=== PATIENT | female | born 1965 | race Caucasian/White ===

== ENCOUNTER 2018-08-23 16:24 | Emergency (ER) | payer OTHER ==
--- OUTSIDE RECORDS SUMMARY | 2018-08-23 16:27 | XMS REPORT | Clinical Summary ---
:1965 Author Organization [facility] Address [address] [place] [address] Care Team Providers Name Role Phone Asked, No Pcp Primary Care Provider Unavailable Allergies No Known Allergies Medications Medication Sig Dispensed Refills Start Date End Date Status aspirin 325 MG Take 1 tablet 56 tablet 0 01/10/2018 Active tabletIndications: (325 mg total) Femoroacetabular by mouth 2 impingement of right (two) times a hip day after meals. docusate sodium Take 1 capsule 30 capsule 0 01/10/2018 Active (COLACE) 100 MG (100 mg total) capsuleIndications: by mouth 2 Femoroacetabular (two) times a impingement of right day. hip naproxen (NAPROSYN) Take 1 tablet by mouth 2 times a day with meals for 30 days 60 tablet 0 01/10/2018 Active 500 MG tabletIndications: Begin taking Naproxen the day after you finish Indocin ( Indomethacin) Femoroacetabular impingement of right hip tiZANidine (ZANAFLEX) Take 1 tablet 10 tablet 0 01/10/2018 Active 4 MG (4 mg total) tabletIndications: by mouth every Femoroacetabular 8 (eight) impingement of right hours as hip needed for muscle spasms. ondansetron ODT Take 1 tablet 10 tablet 0 01/10/2018 Active (ZOFRAN ODT) 8 MG (8 mg total) disintegrating by mouth every tabletIndications: 8 (eight) Femoroacetabular hours as impingement of right needed for hip nausea or vomiting. piroxicam (FELDENE) Take 1 capsule 30 capsule 0 02/24/2017 12/07/19 Discontinued 20 MG capsule (20 mg total) 18 by mouth daily. indomethacin SR Take 1 capsule 4 capsule 0 01/10/2018 01/15/20 (INDOCIN SR) 75 mg CR (75 mg total) 18 capsuleIndications: by mouth daily Femoroacetabular with breakfast impingement of right for 4 days. hip esomeprazole (NexIUM) Take 1 capsule 7 capsule 0 01/10/2018 01/18/20 20 MG (20 mg total) 18 capsuleIndications: by mouth daily Femoroacetabular before impingement of right breakfast for hip 7 days. 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 Tear of right acetabular labrum 06/20/2017 Gait abnormality 06/20/2017 Muscle weakness of lower extremity 06/20/2017 Congenital dysplasia of right hip 06/20/2017 Encounters Date Type Specialty Care Team Description 02/28/2018 Office Visit Orthopedic Surgery Kenyon Bean Femoroacetabular impingement of right hip (Primary Dx); MD [place] Hip instability, right; Tear of right acetabular labrum, subsequent encounter 01/24/2018 Office Visit Orthopedic Surgery Kenyon Bean Femoroacetabular impingement of right hip (Primary Dx); MD [place] Hip instability, right; Labral tear of hip, degenerative 01/11/2018 Surgery Orthopedic Surgery Kenyon Bean HIP ARTHROSCOPY, MD [place] FEMOROPLASTY, ACETABULOPLASTY, CAPSULAR REPAIR, LABRAL REFIXATION, ANTERIOR INFERIOR ILIAC SPINE SUBSPINE DECOMPRESSION 01/11/2018 Anesthesia Event Orthopedic Surgery Misty Patel, ASIAN STUDIES PROGRAM CHAIR 01/11/2018 Hospital Encounter Orthopedic Surgery Kenyon Bean MD 01/10/2018 Orders Only Orthopedic Surgery Gita Alfonsoabular GREGOR Redmond impingement of right hip (Primary Dx) 01/06/2018 Pre-Admit Testing Pre-Admission Kenyon Bean Pre-op testing ( Primary Appointment Testing MD [place] Dx) 01/04/2018 Orders Only Orthopedic Surgery Gita Alfonsoabular impingement of right hip (Primary Dx); GREGOR [place] Tear of right acetabular labrum, initial encounter 12/29/2017 Orders Only Orthopedic Surgery Alfonso, Other specific joint derangements of right hip, not elsewhere classified (Primary Dx); GREGOR Redmond Femoroacetabular impingement of right hip; Tear of right acetabular labrum, initial encounter 12/06/2017 Pre-Admit Testing Pre-Admission Kenyon Bean Pre-op testing ( Primary Appointment Testing MD [place] Dx) 12/06/2017 Office Visit Orthopedic Surgery Kenyon Bean Right hip pain ( Primary Dx); MD [place] Femoroacetabular impingement of right hip; Hip instability, right; Labral tear of hip, degenerative after 08/22/2017 Family History Medical History Relation Name Comments Hypertension Mother Relation Name Status Comments Mother Social History Tobacco Use Types Packs/Day Years Used Date Never Smoker Smokeless Tobacco: Never Used Alcohol Use Drinks/Week oz/Week Comments Yes 5 drinks per week Sex Assigned at Date Recorded Not on file Job Start Date Occupation Industry Not on file Not on file Not on file Travel History Travel Start Travel End No recent travel history available. Last Filed Vital Signs Vital Sign Reading Time Taken Blood Pressure 139/63 01/11/2018 1:21 PM CDT Pulse 86 01/11/2018 1:21 PM CDT Temperature 36.6 C (97.8 F) 02/28/2018 10:39 AM CDT Respiratory Rate 16 01/11/2018 1:21 PM CDT Oxygen Saturation 96% 01/11/2018 1:21 PM CDT Inhaled Oxygen Concentration - - Weight 86.2 kg (190 lb) 02/28/2018 10:39 AM CDT Height 175.3 cm (5' 9") 02/28/2018 10:39 AM CDT Body Mass Index 28.06 02/28/2018 10:39 AM CDT Plan of Treatment Health Maintenance Due Date Last Done Comments CERVICAL CANCER SCREENING 1987 COLON CANCER SCREENING 2016 SHINGLES VACCINES (1 of 2) 2016 BREAST CANCER SCREENING 11/29/2016 11/29/2014, 11/29/2014, 10/07/2012, Additional history exists INFLUENZA VACCINE 02/02/2018 Implants Implanted Type Area Nuclear Fuel Processing 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 Device Shelf Model / Identifier Expiration Serial / Date Lot 1.8 Q-Fix Mini Suture [place] (Blue-Cobraid) - [id number] IMPLANT Right: [employer]HEW 09/06/2020 [id number] / Implanted: Qty: 2 on 01/11/2018 by Kenyon Bean MD DEVICES Hip SPORTS MEDICINE / (ENDO) [id number] 1.8 Q-Fix Mini Suture [place] (Blue-Cobraid) - [id number] [id number] IMPLANT Right: [employer]PHEW 09/06/2020 [id number] / Implanted: Qty: 1 on 01/11/2018 by Kenyon Bean MD DEVICES Hip SPORTS MEDICINE / (ENDO) [id number] 1.8 Q-Fix Mini Suture [place] (Blue-Cobraid) - [id number] [id number] IMPLANT Right: [employer]HEW 09/06/2020 [id number] / Implanted: Qty: 1 on 01/11/2018 by Kenyon Bean MD DEVICES Hip SPORTS MEDICINE / (ENDO) [id number] [place] Juggerknot Kit Soft Disposable 1.5 Mm Juggerknot - [id number] Orthopedic Right: BIOMET SPORTS [id number] / Implanted: 01/11/2018 by Kenyon Bean MD (Quantity not on file) Trauma Hip MEDICINE / Implants [facility] 70 Degree - [id number] Surgical N/A: CANELO SPORTS [id number] / Implanted: Qty: 1 on 01/11/2018 by Kenyon Bean MD Implants; N/A MEDICINE / Expanders; Extenders; Surgical Wires Pad Insert [facility] Boot Hip System - [id number] Surgical N/A: GLENN AND [id number] / Implanted: Qty: 1 on 01/11/2018 by eKnyon Bean MD Implants; N/A NEPHEW / Expanders; ENDOSCOPY Extenders; Surgical Wires Procedures Procedure Name Priority Date/Time Associated Diagnosis Comments XR HIP 4 VIEWS Routine 02/28/2018 10:51 Femoroacetabular Results for this RIGHT AM CDT impingement of right hip procedure are in the results section. OR [place] > 1 HOUR Routine 01/11/2018 9:00 Results for this AM CDT procedure are in the results section. ANESTHESIA Routine 01/11/2018 7:51 INTUBATION AM CDT Procedure Note - Joanie Ryan CRNA - 01/11/2018 7:51 AM CDT Airway Date/Time: 01/11/2018 7:30 AM Performed by: JOANIE RYAN Authorized by: JANAE THORPE Difficult Airway: No Anesthesiologist: JANAE THORPE Resident/SUPERVISOR DITCHING/AA: JOANIE RYAN Performed by: resident/SUPERVISOR DITCHING/AA Preoxygenated with 100% O2: Yes C-spine Precautions Maintained Throughout: No Mask Ventilation: Easy mask Final Airway Type: Endotracheal airway Final Endotracheal Airway: ETT Technique Used: Direct laryngoscopy Devices/Methods Used in Placement: Intubating stylet Insertion Site: Oral Blade Type: [place] Laryngoscope Blade/Videolaryngoscope Blade Size: 2 ETT Size (mm): 7.0 Measured from: Lips ETT to Lips (cm): 22 Placement Verified by: CO2 detection and direct visualization Laryngoscopic view: Grade I - full view of glottis Rapid Sequence Induction (RSI): No Modified RSI: No Number of Attempts at Approach: 1 ARTHROSCOPY, HIP 01/11/2018 7:30 AM CDT Femoroacetabular impingement of right hip Special Needs EXTENDED RECOVERY NEEDED [employer]IZ[employer]ETH [employer]HEW HIP SCOPE SET LARGE C- ARM Ralf texted-MR URINALYSIS SCREEN AND Routine 01/06/2018 4:45 PM Pre-op testing Results for this MICROSCOPY, WITH REFLEX CDT procedure are in TO CULTURE the results section. URINE CULTURE Routine 01/06/2018 4:45 PM Results for this CDT procedure are in the results section. ZZESTIMATED GFR Routine 01/06/2018 4:20 PM Results for this CDT procedure are in the results section. COMPREHENSIVE METABOLIC Routine 01/06/2018 4:20 PM Pre-op testing Results for this PANEL CDT procedure are in the results section. CBC HEMOGRAM Routine 01/06/2018 4:20 PM Pre-op testing Results for this CDT procedure are in the results section. CBC HEMOGRAM Routine 12/06/2017 5:13 PM Pre-op testing Results for this CDT procedure are in the results section. ECG PRE/POST OP Routine 12/06/2017 5:12 PM Pre-op testing Results for this CDT procedure are in the results section. ZZESTIMATED GFR Routine 12/06/2017 4:51 PM Results for this CDT procedure are in the results section. URINALYSIS SCREEN AND Routine 12/06/2017 4:51 PM Pre-op testing Results for this MICROSCOPY, WITH REFLEX CDT procedure are in TO CULTURE the results section. COMPREHENSIVE METABOLIC Routine 12/06/2017 4:51 PM Pre-op testing Results for this PANEL CDT procedure are in the results section. URINE CULTURE Routine 12/06/2017 4:51 PM Results for this CDT procedure are in the results section. XR HIP 4 VIEWS RIGHT Routine 12/06/2017 2:06 PM Right hip pain Results for this CDT procedure are in the results section. after 08/22/2017 Results XR Hip 4 Views Right (02/28/2018 10:51 AM CDT)Only the most recent of2 resultswithin the time period is included. Narrative Performed At Good cam correction. No fx. No HO. [facility] Performing Organization Address City/[facility] Phone Number [facility] [address] [place] [address] OR [place] > I Hour (01/11/2018 9:00 AM CDT) Narrative Performed At IMPRESSION: C-arm fluoroscopy over 1 hour was provided in the OR for the [facility] referring physician. A radiologist was not present during the procedure. Refer to the Operative report issued by the performing provider for procedure details. [facility] OR 19 ROOM: 5 PROCEDURE: RIGHT HIP SCOPE START TIME: 0730 END TIME: 0900 FLUORO TIME: 20 SEC DOSAGE: 5.46 mGy TECH: KOKO Procedure Note Hm Interface, Radiology Results Incoming - 01/11/2018 3:45 PM CDT IMPRESSION: C-arm fluoroscopy over 1 hour was provided in the OR for the referring physician. A radiologist was not present during the procedure. Refer to the Operative report issued by the performing provider for procedure details. [facility] OR 19 ROOM: 5 PROCEDURE: RIGHT HIP SCOPE START TIME: 0730 END TIME: 0900 FLUORO TIME: 20 SEC DOSAGE: 5.46 mGy TECH: KOKO Performing Organization Address City/[facility] Phone Number [email or web address] [address] [place] [address] Urinalysis screen and microscopy, with reflex to culture (01/06/2018 4:45 PM CDT)Only the most recent of2 resultswithin the time period is included. Specimen site Clean catch [facility] DEPARTMENT OF PATHOLOGY AND GENOMIC MEDICINE Color, UA Straw [facility] DEPARTMENT OF PATHOLOGY AND GENOMIC MEDICINE Appearance, UA Clear [facility] DEPARTMENT OF PATHOLOGY AND GENOMIC MEDICINE Specific gravity, UA 1.009 1.001 - 1.035 [facility] DEPARTMENT OF PATHOLOGY AND GENOMIC MEDICINE pH, UA 7.0 5.0 - 8.5 [facility] DEPARTMENT OF PATHOLOGY AND GENOMIC MEDICINE Protein, UA Negative Negative [facility] DEPARTMENT OF PATHOLOGY AND GENOMIC MEDICINE Glucose, UA Negative Negative [facility] DEPARTMENT OF PATHOLOGY AND GENOMIC MEDICINE Ketones, UA Negative Negative [facility] DEPARTMENT OF PATHOLOGY AND GENOMIC MEDICINE Bilirubin, UA Negative Negative [facility] DEPARTMENT OF PATHOLOGY AND GENOMIC MEDICINE Blood, UA Negative Negative [facility] DEPARTMENT OF PATHOLOGY AND GENOMIC MEDICINE Nitrite, UA Negative Negative [facility] DEPARTMENT OF PATHOLOGY AND GENOMIC MEDICINE Urobilinogen, UA <2.0 <2.0 [facility] DEPARTMENT OF PATHOLOGY AND GENOMIC MEDICINE Leukocyte esterase, UA Negative Negative [facility] DEPARTMENT OF PATHOLOGY AND GENOMIC MEDICINE Epithelial cells, UA 2 /HPF [facility] DEPARTMENT OF PATHOLOGY AND GENOMIC MEDICINE WBC, UA None seen 0 - 4 /HPF [facility] DEPARTMENT OF PATHOLOGY AND GENOMIC MEDICINE RBC, UA <1 0 - 5 /HPF [facility] DEPARTMENT OF PATHOLOGY AND GENOMIC MEDICINE Bacteria, UA None seen None seen [facility] DEPARTMENT OF PATHOLOGY AND GENOMIC MEDICINE Yeast, UA None seen [facility] DEPARTMENT OF PATHOLOGY AND GENOMIC MEDICINE Yeast with pseudohyphae, UA None seen [facility] DEPARTMENT OF PATHOLOGY AND GENOMIC MEDICINE Specimen Urine Performing Organization Address City/[facility] Centercode Phone Number [facility] DEPARTMENT OF PATHOLOGY AND [address] [place] [address] Urine culture (01/06/2018 4:45 PM CDT)Only the most recent of2 resultswithin the time period is included. Urine culture SEE COMMENTComment: Bacteriuria [facility] DEPARTMENT OF PATHOLOGY screen negative. AND GENOMIC MEDICINE Performing Organization Address City/[facility]/Zipcode Phone Number [facility] DEPARTMENT OF PATHOLOGY AND [address] [place] [id number] [place] [address] Estimated GFR (01/06/2018 4:20 PM CDT)Only the most recent of2 resultswithin the time period is included. GFR Non Af Amer 75 mL/min/1.73 m2 [facility] DEPARTMENT OF PATHOLOGY AND GENOMIC MEDICINE GFR Af Amer >90 mL/min/1.73 m2 [facility] DEPARTMENT OF Comment: PATHOLOGY AND GENOMIC Chronic kidney disease: <60 mL/min/1.73m2 MEDICINE Kidney failure: <15 mL/min/1.73m2 The estimated GFR is calculated from the IDMS-traceable Modification of Diet in Renal Disease Equation. The accuracy of the calculation is poor when the creatinine is normal. Calculated values >90 mL/min/1.73m2 are not reported. This equation has not been validated in children (<18 years), women, the elderly (>70 years), or ethnic groups other than Caucasians and Americans. Specimen Plasma specimen Performing Organization Address City/[facility]/Zipcode Phone Number [facility] OF PATHOLOGY AND [address] [place] [address] CBC hemogram (01/06/2018 4:20 PM CDT)Only the most recent of2 resultswithin the time period is included. WBC 8.17 4.50 - 11.00 k/uL [facility] DEPARTMENT OF PATHOLOGY AND GENOMIC MEDICINE RBC 5.44 4.20 - 5.50 m/uL [facility] DEPARTMENT OF PATHOLOGY AND GENOMIC MEDICINE HGB 14.5 12.0 - 16.0 g/dL [facility] DEPARTMENT OF PATHOLOGY AND GENOMIC MEDICINE HCT 46.3 37.0 - 47.0 % [facility] DEPARTMENT OF PATHOLOGY AND GENOMIC MEDICINE MCV 85.1 82.0 - 100.0 fL [facility] DEPARTMENT OF PATHOLOGY AND GENOMIC MEDICINE MCH 26.7 (L) 27.0 - 34.0 pg [facility] DEPARTMENT OF PATHOLOGY AND GENOMIC MEDICINE MCHC 31.3 31.0 - 37.0 g/dL [facility] DEPARTMENT OF PATHOLOGY AND GENOMIC MEDICINE RDW - SD 49.1 37.0 - 55.0 fL [facility] DEPARTMENT OF PATHOLOGY AND GENOMIC MEDICINE MPV 10.7 8.8 - 13.2 fL [facility] DEPARTMENT OF PATHOLOGY AND GENOMIC MEDICINE Platelet count 265 150 - 400 k/uL [facility] DEPARTMENT OF PATHOLOGY AND GENOMIC MEDICINE Nucleated RBC 0.00 /100 WBC [facility] OF PATHOLOGY AND GENOMIC MEDICINE Specimen Blood Performing Organization Address City/[facility] Centercode Phone Number [facility] PATHOLOGY AND [address] [place], [place] [phone] [employer] [facility] Comprehensive metabolic panel (01/06/2018 4:20 PM CDT)Only the most recent of2 resultswithin the time period is included. Sodium 137 135 - 148 mEq/L [facility] DEPARTMENT OF PATHOLOGY AND GENOMIC MEDICINE Potassium 3.8 3.5 - 5.0 mEq/L [facility] DEPARTMENT OF PATHOLOGY AND GENOMIC MEDICINE Chloride 97 (L) 98 - 112 mEq/L [facility] DEPARTMENT OF PATHOLOGY AND GENOMIC MEDICINE CO2 27 24 - 31 mEq/L [facility] DEPARTMENT OF PATHOLOGY AND GENOMIC MEDICINE Anion gap 13@ANIO 7 - 15 mEq/L [facility] DEPARTMENT OF PATHOLOGY AND GENOMIC MEDICINE BUN 9 6 - 20 mg/dL [facility] DEPARTMENT OF PATHOLOGY AND GENOMIC MEDICINE Creatinine 0.8 0.5 - 0.9 mg/dL [facility] DEPARTMENT OF PATHOLOGY AND GENOMIC MEDICINE Glucose 79 65 - 99 mg/dL [facility] DEPARTMENT OF PATHOLOGY AND GENOMIC MEDICINE Calcium 10.1 8.3 - 10.2 mg/dL [facility] DEPARTMENT OF PATHOLOGY AND GENOMIC MEDICINE Protein 7.4 6.3 - 8.3 g/dL [facility] DEPARTMENT OF Comment: PATHOLOGY AND GENOMIC [place] 4.6-7.0 g/dL MEDICINE 1 week 4.4-7.6 g/dL 7 months-1year5.1-7.3 g/dL 1-2 years5.6-7.5 g/dL >3 years6.0-8.0 g/dL 18-150 6.3-8.3 g/dL Albumin 4.0 3.5 - 5.0 g/dL [facility] DEPARTMENT OF PATHOLOGY AND GENOMIC MEDICINE A/G ratio 1.2 0.7 - 3.8 [facility] DEPARTMENT OF PATHOLOGY AND GENOMIC MEDICINE Alkaline phosphatase 80 35 - 104 U/L [facility] DEPARTMENT OF PATHOLOGY AND GENOMIC MEDICINE AST 17 10 - 35 U/L [facility] DEPARTMENT OF PATHOLOGY AND GENOMIC MEDICINE ALT 15 5 - 50 U/L [facility] DEPARTMENT OF PATHOLOGY AND GENOMIC MEDICINE Total bilirubin 0.5 0.0 - 1.2 mg/dL [facility] DEPARTMENT OF PATHOLOGY AND GENOMIC MEDICINE Specimen Plasma specimen Performing Organization Address City/State/[facility]ercofl Phone Number [facility] DEPARTMENT OF PATHOLOGY AND [address] [place] [address] [facility] MEDICINE ECG Pre/Post Op (12/06/2017 5:12 PM CDT) Ventricular rate 64 [facility] Atrial rate 64 [facility] SC interval 164 [facility] QRSD interval 80 [facility] MUSE QT interval 404 [facility] QTC interval 416 [facility] M[facility] P axis 1 47 [facility] MUSE QRS axis 1 25 [facility] M[facility] T wave axis 38 [facility] EKG impression Normal sinus rhythm-Possible Left atrial [facility] enlargement-Borderline ECG-In automated comparison with ECG of 04-JACKY-2018 17:11,-No significant change was found- Performing Organization Address City/State/Zipcode Phone Number [facility] [address] [place] [address] after 08/22/2017 Insurance Payer Benefit Plan / Group Subscriber ID Type Phone Address [employer] AET[employer] PPO OPEN CHOICE xxxxxxxxxx PPO Advance Directives Patient has advance care planning documents on file. For more information, please contact:Kieran Miller[address] [place] [address]
--- NOTE | 2018-08-23 20:04 | RAD REPORT ---
EXAM DESCRIPTION: CT - Head Brain Wo Cont - 08/23/2018 7:29 pm CLINICAL HISTORY: Head injury with headaches COMPARISON: None. TECHNIQUE: Computed axial tomography of the head was obtained. IV contrast was not requested. All CT scans are performed using dose optimization technique as appropriate and may include automated exposure control or mA/KV adjustment according to patient size. FINDINGS: An intracranial bleed is not seen . The ventricles are normal in caliber. No extra-axial fluid collection is noted. Fluid within the sinuses/ mastoids is not seen. IMPRESSION: No acute intracranial abnormality is seen. If patient's symptoms persist MRI of the bra in would be recommended.
--- NOTE | 2018-08-23 20:27 | ER ---
Nurse's Notes [facility] Name: Mariah Parsons Age: 53 yrs Sex: Female : 1965 Arrival Date: 08/23/2018 Time: 16:27 Bed 11 Private MD: Shelly Wade K Diagnosis: Concussion Presentation: 08/23 16:53 Presenting complaint: Headache and dizziness since mechanical fall from standing 4 days hb ago. Negative LOC. Transition of care: patient was not received from another setting of care. Onset of symptoms was August 19, 2018. Risk Assessment: Do you want to hurt yourself or someone else? Patient reports no desire to harm self or others. Care prior to arrival: None. 16:53 Method Of Arrival: Ambulatory hb 16:53 Acuity: KATHIE 4 hb 20:13 Initial Sepsis Screen: Does the patient meet any 2 criteria? No. Patient's initial rv sepsis screen is negative. Does the patient have a suspected source of infection? No. Patient's initial sepsis screen is negative. Triage Assessment: 20:13 Pain: Pain began 2-3 days ago. rv 20:34 Headache History: Denies prior headaches. General: Appears in no apparent distress. rv comfortable. Pain: Also complains of no other associated symptoms. Pain: Complains of pain in top of head. CHAPERON: 16:55 LMP N/A - Post-menopause hb Historical: - Allergies: 16:57 No Known Allergies; hb - Home Meds: 16:57 None [Active]; hb - PMHx: 16:57 None; hb - PSHx: 16:57 Hip - RIGHT; hb - Immunization history:: Adult Immunizations up to date. - Social history:: Smoking status: Patient/guardian denies using tobacco. - Ebola Screening: : No symptoms or risks identified at this time. - Family history:: not pertinent. - Hospitalizations: : No recent hospitalization is reported. Screenin:12 Abuse screen: Denies threats or abuse. Denies injuries from another. Nutritional rv screening: No deficits noted. Tuberculosis screening: No symptoms or risk factors identified. Fall Risk None identified. Assessment: 17:00 General: Appears in no apparent distress. uncomfortable, Behavior is calm, cooperative. rv 17:00 Pain: Complains of pain in top of head. Neuro: Level of Consciousness is awake, alert, rv obeys commands, Oriented to person, place, time, situation. Cardiovascular: Capillary refill < 3 seconds. Respiratory: Airway is patent. GI: No signs and/or symptoms were reported involving the gastrointestinal system. : No signs and/or symptoms were reported regarding the genitourinary system. EENT: No signs and/or symptoms were reported regarding the EENT system. Derm: Skin is intact. Musculoskeletal: No signs and/or symptoms reported regarding the musculoskeletal system. Vital Signs: 16:55 BP 143 / 91; Pulse 73; Resp 16; Temp 96.9; Pulse Ox 99% on R/A; Pain 7/10; hb 20:34 BP 128 / 86; Pulse 66; Resp 18 S; Pulse Ox 98% on R/A; rv Yogi Coma Score: 20:25 Eye Response: spontaneous(4). Verbal Response: oriented(5). Motor Response: obeys rn commands(6). Total: 15. ED Course: 16:27 Patient arrived in ED. rg4 16:27 Shelly Wade MD is Private Physician. rg4 16:55 Triage completed. hb 16:56 Arm band placed on. hb 19:02 Raji Crawford MD is Attending Physician. rn 19:[address] 2 19:27 CT completed. Patient tolerated procedure well. Patient moved back from CT. 2 19:30 CT Head Brain wo Cont In Process Unspecified. EDMS 20:12 No provider procedures requiring assistance completed. Patient did not have IV access rv during this emergency room visit. 20:13 Patient has correct armband on for positive identification. Call light in reach. Pulse rv ox on. Administered Medications: No medications were administered Outcome: 20:26 Discharge ordered by . rn 20:34 Discharged to home ambulatory. rv 20:34 Condition: good 20:38 Discharge instructions given to patient, Instructed on discharge instructions, follow rv up and referral plans. Demonstrated understanding of instructions, follow-up care. 20:38 Patient left the ED. rv Signatures: Dispatcher [employer] EDMS Raji Crawford MD MD rn Baxter, Heather, RN RN hb Garcia, Rubi rg4 Nicole Wheatley 2 Phil Dial RN RN rv
--- NOTE | 2018-08-23 20:27 | EDPHYS ---
Physician Documentation [facility] Unit Name: Mariah Parsons Age: 53 yrs Sex: Female : 1965 Arrival Date: 08/23/2018 Time: 16:27 Bed 11 Private MD: Shelly Wade K ED Physician Raji Crawford HPI: 08/23 19:12 This 53 yrs old Female presents to ER via Ambulatory with complaints of rn Headache. 19:12 The patient complains of pain to the top of head. The patient describes the headache as rn aching. Onset: The symptoms/episode began/occurred 4 day(s) ago. Associated signs and symptoms: Pertinent positives: dizziness, malaise, Pertinent negatives: altered mental status, fever, neck stiffness, vision changes, vision loss, vomiting, weakness, vertigo. Severity of symptoms: At its worst the pain was mild, in the emergency department the pain is unchanged. The patient has not experienced similar symptoms in the past. Reports fall 4 days ago, hit head on curb, no LOC, since then having headache, dizziness, malaise, and feels "off", seen by doctor today, sent here for ct head. No focal neurological complaint. . 19:12 Symptoms intermittent.. 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 - Social history:: Smoking status: Patient/guardian denies using tobacco. - Ebola Screening: : No symptoms or risks identified at this time. - Family history:: not pertinent. - Hospitalizations: : No recent hospitalization is reported. ROS: 19:12 Constitutional: Negative for fever, chills, and weight loss, Eyes: Negative for injury, rn pain, redness, and discharge, Neck: Negative for injury, pain, and swelling, Cardiovascular: Negative for chest pain, palpitations, and edema, Respiratory: Negative for shortness of breath, cough, wheezing, and pleuritic chest pain, Abdomen/GI: Negative for abdominal pain, nausea, vomiting, diarrhea, and constipation, MS/Extremity: Negative for injury and deformity, Skin: Negative for injury, rash, and discoloration, Neuro: + headache, no focal weakness/numbness Exam: 19:12 Constitutional: This is a well developed, well nourished patient who is awake, alert, rn and in no acute distress. Head/Face: Normocephalic, + small hematoma/swelling top/occiput of scalp, no depression Eyes: Pupils equal round and reactive to light, extra-ocular motions intact. Lids and lashes normal. Conjunctiva and sclera are non-icteric and not injected. Cornea within normal limits. Periorbital areas with no swelling, redness, or edema. ENT: MMM Neck: Trachea midline, no thyromegaly or masses palpated, and no cervical lymphadenopathy. Supple, full range of motion without nuchal rigidity, or vertebral point tenderness. No Meningismus. Skin: Warm, dry with normal turgor. Normal color with no rashes, no lesions, and no evidence of cellulitis. MS/ Extremity: Pulses equal, no cyanosis. Neurovascular intact. Full, normal range of motion. Equal circumference. Neuro: Awake and alert, GCS 15, oriented to person, place, time, and situation. Cranial nerves II-XII grossly intact. Motor strength 5/5 in all extremities. Sensory grossly intact. Cerebellar exam normal. Vital Signs: 16:55 BP 143 / 91; Pulse 73; Resp 16; Temp 96.9; Pulse Ox 99% on R/A; Pain 7/10; hb 20:34 BP 128 / 86; Pulse 66; Resp 18 S; Pulse Ox 98% on R/A; rv Yogi Coma Score: 20:25 Eye Response: spontaneous(4). Verbal Response: oriented(5). Motor Response: obeys rn commands(6). Total: 15. MDM: 19:02 Patient medically screened. rn 20:25 Differential diagnosis: migraine, subdural hematoma, tension headache, traumatic rn injuries, vasomotor headache, post-concussive syndrome. Data reviewed: vital signs, nurses notes, radiologic studies, CT scan, and as a result, I will discharge patient. Counseling: I had a detailed discussion with the patient and/or guardian regarding: the historical points, exam findings, and any diagnostic results supporting the discharge/admit diagnosis, radiology results, the need for outpatient follow up, to return to the emergency department if symptoms worsen or persist or if there are any questions or concerns that arise at home. Special discussion: I discussed with the patient/guardian in detail that at this point there is no indication for admission to the hospital. It is understood, however, that if the symptoms persist or worsen the patient needs to return immediately for re-evaluation. 08/23 19:12 Order name: CT Head Brain wo Cont; Complete Time: 20:25 rn Administered Medications: No medications were administered Disposition: 08/23/18 20:26 Discharged to Home. Impression: Concussion. - Condition is Stable. - Discharge Instructions: Concussion, Adult, Post-Concussion Syndrome. - Medication Reconciliation Form, Thank You Letter, Antibiotic Education, Prescription Opioid Use form. - Follow up: Private Physician; When: As needed; Reason: Recheck today's complaints, Re-evaluation by your physician. - Problem is new. - Symptoms have improved. Signatures: Dispatcher [employer] EDRaji Farmer MD MD rn Baxter, Heather, RN RN hb Vicente, Ronaldo, RN RN rv Corrections: (The following items were deleted from the chart) 20:38 20:26 08/23/2018 20:26 Discharged to Home. Impression: Concussion. Condition is Stable. rv Forms are Medication Reconciliation Form, Thank You Letter, Antibiotic Education, Prescription Opioid Use. Follow up: Private Physician; When: As needed; Reason: Recheck today's complaints, Re-evaluation by your physician. Problem is new. Symptoms have improved. rn
== END 2018-08-23 20:38 | disposition home or self-care (01) ==
LOC: ER 16:24
DX: S06.0X0A Concussion without loss of consciousness, initial encounter (principal); W01.198A Fall on same level from slipping, tripping and stumbling with subsequent striking against other object, initial encounter; Y93.9 Activity, unspecified; Y92.9 Unspecified place or not applicable
CPT/HCPCS: 70450

== ENCOUNTER 2022-07-07 06:56 | Emergency (ER) | payer BC ==
--- OUTSIDE RECORDS SUMMARY | 2022-07-07 06:59 | XMS REPORT | Continuity of Care Document ---
:1965 Author Organization [facility] t Address [address] [place] [address] [address]. [address] [place] [address] Care Team Providers Name Role Phone GILLIAN CARA House Primary Care Physician Unavailable ROSLYN WALLACE Attending Clinician Unavailable Doctor Unassigned, [place] Attending Clinician Unavailable Kaden Lomeli MD Attending Clinician Anna Hart MD Attending Clinician ANNA HART Attending Clinician Unavailable ROSEMARIE BISHOP Attending Clinician Unavailable KADEN LOMELI Attending Clinician Unavailable KANA FOSTER Attending Clinician Unavailable Therapy, [facility] Attending Clinician Unavailable Kana Foster MD Attending Clinician GIBSON CANTU Attending Clinician Unavailable DARRELL DODD Attending Clinician Unavailable DR NAZANIN SHORE Attending Clinician Unavailable Coty Foster Attending Clinician Unavailable Lab, [facility] Attending Clinician Unavailable Malissa Tee Attending Clinician MALISSA COLINDRES Attending Clinician Unavailable ANJEL GAYLE Attending Clinician Unavailable Yasmine Attending Clinician Unavailable DR NAZANIN SHORE Admitting Clinician Unavailable Yasmine Admitting Clinician Unavailable Payers Payer Name Policy Type Policy Number Effective Date Expiration Date S dayday [facility] [id number] 2020 00:00:00 [employer] - CHOICE [id number] 2014 00:00:00 (POS II) Problems Condition Condition Condition Status Onset Resolution Last Treating Co mments Source Name Details Category Date Date Treatment Clinician Date 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 impingemen 00:00: Ho spita t of right t of right 00 l hip hip Muscle Muscle Disease Active 2016-07 [facility] weakness weakness 2-17 [facility] of lower of lower 00:00: Hospit a extremity extremity 00 l 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 2-17 st of right of right 00:00: Hospit a hip hip 00 l Tear of Tear of Disease Active 2016-07 [facility] right right 2-17 st acetabular acetabular 00:00: Ho spita labrum labrum 00 l Gait Gait Disease Active 2016-07 [facility] abnormalit abnormalit 2-17 st y y 00:00: Hospita 00 l No known No known Disease Unive rs active active ity of problems problems [facility] Allergies, Adverse Reactions, Alerts Allergy Allergy Status Severity Reaction(s) Onset Inactive Treating Comm ents Source Name Type Date Date Clinician No Known DA Active U [facility] Allergie -19 [place] 00:00: Orthope 00 dic Hospita l No Known DA Active U [facility] Allergie -19 [place] 00:00: Orthope 00 dic Hospita l NO KNOWN Drug Active Univers ALLERGIE Class ity of S [facility] Family History Family Member Diagnosis Comments Start Date Stop Date Source Natural mother Hypertension [facility] Social History Social Habit Start Date Stop Date Quantity Comments Source Exposure to Not sure [facility] SARS-CoV-2 [facility] (event) Branch Tobacco use and 2021-06-16 2021-06-16 Never used Universit y of exposure 00:00:00 00:00:00 [facility] Alcohol intake 2020-09-14 2020-09-14 Current drinker [facility] 00:00:00 00:00:00 of alcohol (finding) Alcohol Comment 2017-12-06 2017-12-06 5 drinks per [facility] 00:00:00 00:00:00 week Sex Ass[birth year] [facility] 00:00:00 00:00:00 Smoking Status Start Date Stop Date Source Never smoker [facility] Medications Ordered Filled Start Stop Current Ordering Indication Dosage Frequency Signature Comments Components Source Medication Medication Date Date Medication? Clinician (SIG) Name Name fluticasone Yes [id number] 1{spray Use 1 Univers propionate 1-06 } [place] in ity o f 50 00:00: each [place] mcg/actuati 00 nostril 2 Med ical on nasal (two) Branch spray times daily. fluticasone Yes [id number] 1{spray Use 1 Univers propionate 1-06 } [place] in ity o f 50 00:00: each [place] mcg/actuati 00 nostril 2 Med ical on nasal (two) Branch spray times daily. fluticasone Yes [id number] 1{spray Use 1 Univers propionate 1-06 } [place] in ity o f 50 00:00: each [place] mcg/actuati 00 nostril 2 Med ical on nasal (two) Branch spray times daily. fluticasone Yes [id number] 1{spray Use 1 Univers propionate 1-06 } [place] in ity o f 50 00:00: each [place] mcg/actuati 00 nostril 2 Med ical on nasal (two) Branch spray times daily. famotidine 2021- No [id number] 40mg Take 1 Univers 40 mg 1-07 tablet by ity of tablet 00:00: 04:59 mouth at [place] 00 :00 bedtime Medical for 90 Branch days. famotidine 2021- No [id number] 40mg Take 1 Univers 40 mg 07-10 04-07 tablet by ity of tablet 00:00: 04:59 mouth at [place] 00 :00 bedtime Medical for 90 Branch days. famotidine 2021- No [id number] 40mg Take 1 Univers 40 mg 07-10 04-07 tablet by ity of tablet 00:00: 04:59 mouth at [place] 00 :00 bedtime Medical for 90 Branch days. famotidine 2021- No [id number] 40mg Take 1 Univers 40 mg 1 04-07 tablet by ity of tablet 00:00: 04:59 mouth at [place] 00 :00 bedtime Medical for 90 Branch days. fluticasone 2020-07 Yes [id number] 1{spray Use 1 Univers propionate 2-13 08274 } [place] in ity of 50 00:00: each [place] mcg/actuati 00 nostril Medic al on nasal daily. Branch spray cetirizine 2020-07 Yes [id number] 10mg Take 1 Univers (ZYRTEC) 10 2-13 48062 tablet by it y of mg tablet 00:00: mouth [place] 00 daily. Medical Branch azelastine 2020-07 Yes [id number] 1{spray Use 1 Univers 137 mcg 2-13 91011 } [place] ity of (0.1 %) 00:00: each [place] nasal spray 00 nostril 2 Med ical (two) Branch times daily. Use in each nostril as directed fluticasone 2020-07 Yes [id number] 1{spray Use 1 Univers propionate 2-13 53528 } [place] ity of 50 00:00: each [place] mcg/actuati 00 nostril Medic al on nasal daily. Branch spray cetirizine 2020-07 Yes [id number] 10mg Take 1 Univers (ZYRTEC) 10 2-13 16672 tablet by it y of mg tablet 00:00: mouth [place] 00 daily. Medical Branch azelastine 2020-07 Yes [id number] 1{spray Use 1 Univers 137 mcg 2-13 26798 } [place] ity of (0.1 %) 00:00: each [place] nasal spray 00 nostril 2 Med ical (two) Branch times daily. Use in each nostril as directed fluticasone 2020-07 Yes [id number] 1{spray Use 1 Univers propionate 2-13 34447 } [place] ity of 50 00:00: each [place] mcg/actuati 00 nostril Medic al on nasal daily. Branch spray cetirizine 2020-07 Yes [id number] 10mg Take 1 Univers (ZYRTEC) 10 2-13 46502 tablet by it y of mg tablet 00:00: mouth [place] 00 daily. Medical Branch azelastine 2020-07 Yes [id number] 1{spray Use 1 Univers 137 mcg 2-13 83005 } [place] ity of (0.1 %) 00:00: each [place] nasal spray 00 nostril 2 Med ical (two) Branch times daily. Use in each nostril as directed fluticasone 2020-07 Yes [id number] 1{spray Use 1 Univers propionate 2-13 06240 } [place] in ity of 50 00:00: each [place] mcg/actuati 00 nostril Medic al on nasal daily. Branch spray cetirizine 2020-07 Yes [id number] 10mg Take 1 Univers (ZYRTEC) 10 08-17 tablet by it y of mg tablet 00:00: mouth [place] 00 daily. Medical Branch azelastine 2020-07 Yes [id number] 1{spray Use 1 Univers 137 mcg 08-17 } [place] in ity of (0.1 %) 00:00: each [place] nasal spray 00 nostril 2 Med ical (two) Branch times daily. Use in each nostril as directed aspirin 325 Yes [id number] 325mg Q.5D Take 1 [facility] MG tablet 01-[address] 00:00: (325 mg Hospita 00 total) by l mouth 2 (two) times a day after meals. docusate Yes [id number] 100mg Q.5D Take 1 [facility] sodium 01-[address] (COLACE) 00:00: (100 mg Hospit a 100 MG 00 total) by l capsule mouth 2 (two) times a day. naproxen Yes [id number] Take 1 [facility] (NAPROSYN) 01-[address] 500 MG 00:00: mouth 2 Hospita tablet 00 times a l day with meals for 30 daysBegin taking Naproxen the day after you finish Indocin (Indometha marko) tiZANidine Yes [id number] 4mg Q8H Take 1 [facility] (ZANAFLEX) 01-10 tablet (4 st 4 MG tablet 00:00: mg total) H ospita 00 by mouth l every 8 (eight) hours as needed for muscle spasms. ondansetron Yes [id number] 8mg Q8H Take 1 [facility] ODT (ZOFRAN 01-10 tablet (8 st ODT) 8 MG 00:00: mg total) Hos lui disintegrat 00 by mouth l ing tablet every 8 (eight) hours as needed for nausea or vomiting. Vital Signs Vital Name Observation Time Observation Value Comments Source Body height 2021-07-10 14:24:00 175.3 cm [facility] Body weight 2021-07-10 14:24:00 86.183 kg [facility] BMI 2021-07-10 14:24:00 28.06 kg/m2 [facility] Procedures Procedure Date / Time Performed Performing Clinician [facility] e ASSIGNMENT OF BENEFITS 2021-09-15 20:47:46 Doctor Unassigned, No [facility] Plan of Care Planned Activity Planned Date Details Comments Source Future Scheduled 2022-07-06 COVID-19 VACCINE (#1) [facility] Test 14:29:47 [code = COVID-19 VACCINE (#1)] Future Scheduled 2022-07-06 Hepatitis C screening [facility] Test 14:29:47 (procedure) [code = 892570726] Future Scheduled 2022-07-06 Screening for [facility] Test 14:29:47 malignant neoplasm of cervix (procedure) [code = 976154617] Future Scheduled 2022-07-06 COLONOSCOPY SCREENING [facility] Test 14:29:47 [code = COLONOSCOPY SCREENING] Future Scheduled 2022-07-06 SHINGLES VACCINES (1 [facility] Test 14:29:47 of 2) [code = SHINGLES VACCINES (1 of 2)] Future Scheduled 2022-07-06 BREAST CANCER [facility] Test 14:29:47 SCREENING [code = BREAST CANCER SCREENING] Future Scheduled 2022-07-06 INFLUENZA VACCINE [facility] Test 14:29:47 [code = INFLUENZA VACCINE] Encounters Start End Encounter Admission Attending Care Care Encounter Source Date/Time Date/Time Type Type Clinicians Facility Department ID 2021-09-15 2021-09-15 Outpatient R GLEN WALLACE [facility] [id number] Univers 16:00:00 16:24:59 ROSLYN cruz o f [facility] 2021-09-15 2021-09-15 Orders Doctor THERESA 1.2.840.114 [id number] Univers 00:00:00 00:00:00 Only Unassigned, ASMITA [id number] ity of [place] [facility] [id number] Markie as [phone] [address] 2021-08-11 2021-08-11 Refill GLEN Lomeli 1.2.840.114 [id number] Univers 00:00:00 00:00:00 Kaden HEALTH [id number] it y of [place] [id number] Markie as NALLELY?BLEA [id number] [address] MEDICAL OFFICE [facility] 2021-07-26 2021-07-26 Refill Armani [facility] 1.2.840.114 [id number] Univers 00:00:00 00:00:00 Kaden HEALTH [id number] it y of [place] [id number] Markie as NALLELY?BLEA [id number] [address] [facility] 2021-07-10 2021-07-10 [facility] 1.2.840.114 [id number] Univers 08:15:00 08:30:00 Visit Anna MCGOWAN [id number] i ty of [facility] [id number] [place] [id number] [address] 2021-07-10 2021-07-10 Outpatient R TANNER [facility] [id number] Univers 08:15:00 08:15:00 [facility] 2021-07-10 2021-07-10 Outpatient Meseret HART [facility] [id number] Univers 08:15:00 08:15:00 [facility] 2021-07-07 2021-07-07 Outpatient R DARIO [facility] [id number] Univers 10:15:00 10:15:00 ROSEMARIE [facility] 2021-06-16 2021-06-16 Outpatient R ARMANI [facility] [id number] Univers 10:40:00 10:40:00 [facility] 2021-06-16 2021-06-16 [facility] 1.2.840.114 [id number] Univers 10:18:21 10:38:21 Care Kaden HEALTH [id number] it y of [place] [id number] Markie as NALLELY?BLEA [phone] [address] MEDICAL OFF[address] [facility] 2021-03-15 2021-03-15 Outpatient R CRISTIAN [facility] [id number] Univers 10:00:00 10:00:00 KANA itja of [facility] 2021-03-15 2021-03-15 Nurse Therapy, [facility] 1.2.840.114 [id number] Univers 08:28:07 09:28:07 Visit Kana Foster [id number] ity [facility] [id number] [place] [phone] [place] [id number] Branch 2021-03-15 2021-03-15 Orders Doctor THERESA 1.2.840.[id number] [place] [address] 00:00:00 00:00:00 Only Unassigned, ASMITA [id number] ity of [facility] [id number] Markie as [phone] [address] 2020-10-14 2020-10-14 Outpatient [place], [facility] [id number] [place] 00:00:00 00:00:00 GIBSON 078 Method i 2020-10-14 2020-10-14 Outpatient RADY [facility] [id number] 00:00:00 00:00:00 GIBSON 079 Method i 2020-09-14 2020-09-14 Emergency JU, [facility] [id number] [place] 00:00:00 00:00:00 DARRELL 656 Method i 2020-08-28 2020-08-28 Outpatient RADY [facility] [id number] [place] 00:00:00 00:00:00 GIBSON 252 Method i 2020-07-25 2020-07-25 Outpatient Vargas SHORE Vargas MMLVLG [id number] [place] 16:31:00 23:59:00 NAZANIN IMAGING [facility] 2020-07-23 2020-07-23 Outpatient [id number] [id number] [facility] 15:30:00 15:30:00 87 [place] [facility] 2020-06-12 2020-06-12 Laboratory Lab, [facility] 1.2.840.114 [id number] 13:55:42 14:15:42 Only Fam Pob I Health 350.1.13.10 [place] [id number] Professio [phone] nal [address] 2020-06-12 2020-06-12 Laboratory Lab, Adc Fam Pob I [facility] 1.2. 840.114 [id number] Univers 13:55:42 14:15:42 Only Malissa [facility] 350.1.13.10 ity of [place] 4.2.7.2.686 Markie as Professio [phone] [place] dical nal 044 Branch Office [address] [facility] 2020-06-12 2020-06-12 Outpatient R JENS [facility] [id number] Univers 13:40:00 13:40:00 MALISSA cruz [facility] 2020-05-02 2020-05-02 Outpatient NALINI [facility] [id number] [place] 00:00:00 00:00:00 ANJEL [address] 2020-04-03 2020-04-03 Outpatient Yasmine MMG G [id number] [place] 03:50:00 03:50:00 0930 [facility] Results Test Description Test Time Test Comments Results Result [facility] e Comments - XR FLUORO NDL 2020-07-24 11:21:00 [facility] : 1965 Sex: F Patient Name: MIRIAM HOLGUIN Unit No: [id number] EXAMS: CPT CODE: [id number] XR FLUORO NDL 75688 Fluoroscopically guided injection of the right hip with steroid COMPARISON: No prior exams available. FINDINGS: After informed consent was obtained a needle was placed in the right hip with fluoroscopic guidance. Its position was confirmed by injecting Isovue 300 and obtaining a radiograph. Subsequently 2 mL of Kenalog 40 mg per cc and 2 mL of lidocaine was injected. No immediate complications were encountered. 13 seconds of fluoroscopy time was utilized. IMPRESSION: Technically successful steroid injection of the right hip at 1121 Reported and signed by: Otto Pearson M.D. CC: Coty Foster MD Technologist: RT Griselda.(R) Transcribed D/ (1121) KellySLJ [facility] NAME: MIRIAM HOLGUIN [address] [place] [address] PHYS: LORENE Weeks Coty Foster : 1965 AGE: 55 SEX: F [place] [address] LOC: Y.RAD PHONE #: [phone] EXAM DATE: 07/23/2020 STATUS: DEP CLI FAX #: [phone] RAD #: D/C DT PAGE 1 Signed Report Patient Name: MIRIAM HOLGUIN Unit No: [id number] EXAMS: CPT CODE: [id number] XR FLUORO NDL 27950 (Continued) Orig Print D/T: S: 07/24/2020 (1124) [facility] NAME: MIRIAM HOLGUIN CORYDON [address] [place] [address] PHYS: LORENE Weeks Coty Foster : 1965 AGE: 55 SEX: F [place] [address] LOC: Y.RAD PHONE #: [phone] EXAM DATE: 07/23/2020 STATUS: DEP CLI FAX #: [phone] RAD #: D/C DT PAGE 2 Signed Report
--- NOTE | 2022-07-07 08:20 | RAD REPORT ---
EXAM DESCRIPTION: CT - Head Brain Wo Cont - 07/07/2022 8:05 am CLINICAL HISTORY: Headache COMPARISON: 2019 TECHNIQUE: Computed axial tomography of the head was obtained. IV contrast was not requested. All CT scans are performed using dose optimization technique as appropriate and may include automated exposure control or mA/KV adjustment according to patient size. FINDINGS: An intracranial bleed is not seen . The ventricles are normal in caliber. No significant hypodense areas within the brain visualized No extra-axial fluid collection is noted. Fluid within the sinuses/ mastoids is not seen. IMPRESSION: No acute intracranial abnormality is seen. If patient's symptoms persist MRI of the bra in would be recommended.
--- NOTE | 2022-07-07 10:44 | EDPHYS ---
Physician Documentation [facility] Name: Mariah Man Age: 57 yrs Sex: Female : 1965 Arrival Date: 07/07/2022 Time: 06:59 Bed Treatment Private MD: JACOB Physician Deven Graham HPI: 07/07 09:27 This 57 yrs old Female presents to ER via Ambulatory with complaints of Headache. rt 09:27 The patient complains of pain to the right sikhism. The patient describes the headache rt as aching. Onset: The symptoms/episode began/occurred 3 hour(s) ago. Associated signs and symptoms: The patient has no apparent associated signs or symptoms. Severity of symptoms: At its worst the pain was moderate. The symptoms are alleviated by nothing. the symptoms are aggravated by nothing. Patient presents to the ED with a right-sided headache, throbbing, starting this morning. She has associated light sensitivity but denies phonophobia. Denies other acute complaints at this time. Patient states that she does have issues with sinuses. She reports having a previous headache history, but, this is somewhat different. The patient denies other acute complaints at this time, symptoms are moderate severity, no other aggravating leaving factors.. Historical: - Allergies: 07:44 No Known Allergies; jl7 - Home Meds: 07:44 None [Active]; jl7 - PMHx: 07:44 None; jl7 - PSHx: 07:44 None; jl7 - Immunization history:: Client reports receiving the 2nd dose of the Covid vaccine. - Social history:: Smoking status: Patient denies any tobacco usage or history of. - Family history:: not pertinent. ROS: 09:27 Constitutional: Negative for fever, chills, and weight loss, Eyes: Negative for injury, rt pain, redness, and discharge, ENT: Negative for injury, pain, and discharge, Neck: Negative for injury, pain, and swelling, Cardiovascular: Negative for chest pain, palpitations, and edema, Respiratory: Negative for shortness of breath, cough, wheezing, and pleuritic chest pain, Abdomen/GI: Negative for abdominal pain, nausea, vomiting, diarrhea, and constipation, MS/Extremity: Negative for injury and deformity, Skin: Negative for injury, rash, and discoloration, Psych: Negative for depression, anxiety, suicide ideation, homicidal ideation, and hallucinations. 09:27 Neuro: Positive for headache, Negative for altered mental status. Exam: 09:27 Constitutional: This is a well developed, well nourished patient who is awake, alert, rt and in no acute distress. Head/Face: Normocephalic, atraumatic. Eyes: Pupils equal round and reactive to light, extra-ocular motions intact. Lids and lashes normal. Conjunctiva and sclera are non-icteric and not injected. Cornea within normal limits. Periorbital areas with no swelling, redness, or edema. ENT: Nares patent. No nasal discharge, no septal abnormalities noted. Tympanic membranes are normal and external auditory canals are clear. Oropharynx with no redness, swelling, or masses, exudates, or evidence of obstruction, uvula midline. Mucous membranes moist. Neck: Trachea midline, no thyromegaly or masses palpated, and no cervical lymphadenopathy. Supple, full range of motion without nuchal rigidity, or vertebral point tenderness. No Meningismus. Chest/axilla: Normal chest wall appearance and motion. Nontender with no deformity. No lesions are appreciated. Cardiovascular: Regular rate and rhythm with a normal S1 and S2. No gallops, murmurs, or rubs. Normal PMI, no JVD. No pulse deficits. Respiratory: Lungs have equal breath sounds bilaterally, clear to auscultation and percussion. No rales, rhonchi or wheezes noted. No increased work of breathing, no retractions or nasal flaring. Abdomen/GI: Soft, non-tender, with normal bowel sounds. No distension or tympany. No guarding or rebound. No evidence of tenderness throughout. Skin: Warm, dry with normal turgor. Normal color with no rashes, no lesions, and no evidence of cellulitis. MS/ Extremity: Pulses equal, no cyanosis. Neurovascular intact. Full, normal range of motion. Neuro: Awake and alert, GCS 15, oriented to person, place, time, and situation. Cranial nerves II-XII grossly intact. Motor strength 5/5 in all extremities. Sensory grossly intact. Cerebellar exam normal. Normal gait. Psych: Awake, alert, with orientation to person, place and time. Behavior, mood, and affect are within normal limits. Vital Signs: 07:41 BP 150 / 81; Pulse 75; Resp 17; Temp 98.2(TE); Pulse Ox 99% on R/A; Weight 87.09 kg jl7 (R); Height 5 ft. 9 in. (175.26 cm); Pain 9/10; 10:53 BP 138 / 80; Pulse 67; Resp 15; Temp 97.7; Pulse Ox 99% ; jl7 07:41 Body Mass Index 28.35 (87.09 kg, 175.26 cm) jl7 MDM: 09:21 Patient medically screened. rt 10:47 Differential diagnosis: epidural hematoma, intracerebral hemorrhage, meningitis, rt migraine, sinusitis, subarachnoid bleed, subdural hematoma, temporal arteritis. Data reviewed: vital signs, nurses notes, radiologic studies. ED course: Presents to the ED with a headache. She has no meningeal signs, subarachnoid hemorrhage, meningitis considered, however, her presentation is not clinically consistent with these diagnoses, therefore, I do not believe that lumbar puncture is indicated. CT scan of the head shows no acute findings. The patient's presentation is most consistent with migraine headache. Patient states that she had to leave before medications for migraine could be given. Will prescribe patient Reglan. She has no focal neurologic deficits. Low suspicion for CVA. Is stable for outpatient care, return precautions discussed.. 07/07 07:46 Order name: CT Head Brain wo Cont; Complete Time: 09:32 rt Administered Medications: 10:53 Not Given (Patient Refused): Reglan (metoCLOPramide) 10 mg IVP once; over 1 to 2 minutesjl7 10:53 Not Given (Patient Refused): Benadryl (diphenhydrAMINE) 25 mg IVP once jl7 10:53 Not Given (Patient Refused): Ketorolac 15 mg IVP once jl7 10:53 Not Given (Patient Refused): Magnesium Sulfate 2 grams IVPB once over 2 hrs jl7 10:53 Not Given (Patient Refused): NS 0.9% 1000 ml IV at 1 bolus Per protocol; 1000 mL bolus jl7 Disposition Summary: 07/07/22 10:43 Discharge Ordered Location: Home rt Problem: new rt Symptoms: are unchanged rt Condition: Stable rt Diagnosis - Headache rt Followup: rt - With: Private Physician - When: 2 - 3 days - Reason: Discharge Instructions: - Discharge Summary Sheet rt - General Headache Without Cause rt Forms: - Medication Reconciliation Form rt - Thank You Letter rt - Antibiotic Education rt - Prescription Opioid Use rt Prescriptions: - Reglan 10 mg Oral Tablet - take 1 tablet by ORAL route every 6 hours; 15 tablet; Refills: 0, Product rt Selection Permitted Signatures: Dispatcher [employer] Keren Giraldo, RN RN jl7 Deven Graham MD MD rt
--- NOTE | 2022-07-07 10:44 | ER ---
Nurse's Notes [facility] Name: Mariah Man Age: 57 yrs Sex: Female : 1965 Arrival Date: 07/07/2022 Time: 06:59 Bed Treatment Private MD: Diagnosis: Headache Presentation: 07/07 07:41 Chief complaint: Patient states: Went to bed at 2300 last night, woke at 0200 with jl7 sharp headache to right side of head behind eye, ERD in triage assessing pt. Coronavirus screen: Vaccine status: Patient reports being unvaccinated. At this time, the client does not indicate any symptoms associated with coronavirus-19. Ebola Screen: No symptoms or risks identified at this time. Initial Sepsis Screen: Does the patient meet any 2 criteria? No. Patient's initial sepsis screen is negative. Does the patient have a suspected source of infection? No. Patient's initial sepsis screen is negative. Risk Assessment: Do you want to hurt yourself or someone else? Patient reports no desire to harm self or others. Onset of symptoms is unknown. 07:41 Method Of Arrival: Ambulatory [facility] 07:41 Acuity: KATHIE 3 jl7 Triage Assessment: 07:44 Headache History: The patient has had previous headaches and this one is different than jl7 previous episodes, and this one is more severe than previous episodes. General: Appears in no apparent distress. uncomfortable, Behavior is calm, cooperative, appropriate for age. Pain: Complains of pain in right hinduism Pain currently is 9 out of 10 on a pain scale. Quality of pain is described as sharp, Pain began suddenly, Also complains of no other associated symptoms. Neuro: Level of Consciousness is awake, alert, obeys commands, Oriented to person, place, time, situation. Historical: - Allergies: 07:44 No Known Allergies; jl7 - Home Meds: 07:44 None [Active]; jl7 - PMHx: 07:44 None; jl7 - PSHx: 07:44 None; jl7 - Immunization history:: Client reports receiving the 2nd dose of the Covid vaccine. - Social history:: Smoking status: Patient denies any tobacco usage or history of. - Family history:: not pertinent. Assessment: 10:53 Reassessment: ERD to pt to discuss results and POC, pt has somewhere to be so will not jl7 wait for medications to be administered. Vital Signs: 07:41 BP 150 / 81; Pulse 75; Resp 17; Temp 98.2(TE); Pulse Ox 99% on R/A; Weight 87.09 kg jl7 (R); Height 5 ft. 9 in. (175.26 cm); Pain 9/10; 10:53 BP 138 / 80; Pulse 67; Resp 15; Temp 97.7; Pulse Ox 99% ; jl7 07:41 Body Mass Index 28.35 (87.09 kg, 175.26 cm) jl7 ED Course: 06:59 Patient arrived in ED. mr 07:02 Deven Graham MD is Attending Physician. rt 07:44 Triage completed. jl7 07:44 Arm band placed on right wrist. jl7 08:07 CT Head Brain wo Cont In Process Unspecified. EDMS 10:55 No provider procedures requiring assistance completed. Patient did not have IV access jl7 during this emergency room visit. Administered Medications: 10:53 Not Given (Patient Refused): Reglan (metoCLOPramide) 10 mg IVP once; over 1 to 2 minutesjl7 10:53 Not Given (Patient Refused): Benadryl (diphenhydrAMINE) 25 mg IVP once jl7 10:53 Not Given (Patient Refused): Ketorolac 15 mg IVP once jl7 10:53 Not Given (Patient Refused): Magnesium Sulfate 2 grams IVPB once over 2 hrs jl7 10:53 Not Given (Patient Refused): NS 0.9% 1000 ml IV at 1 bolus Per protocol; 1000 mL bolus jl7 Outcome: 10:43 Discharge ordered by . rt 10:55 Discharged to home ambulatory. jl7 10:55 Condition: stable 10:55 Discharge instructions given to patient, Instructed on discharge instructions, follow up and referral plans. medication usage, Demonstrated understanding of instructions, follow-up care, medications, Prescriptions given X 1. 10:55 Patient left the ED. jl7 Signatures: Dispatcher [employer] [facility] Lyla RealalKeren, RN RN jl7 Deven Graham MD MD rt
[2022-07-07 10:59] VITALS: O2SAT 99
[2022-07-07 11:00] VITALS: BP 138/80; TEMP 97.7
== END 2022-07-07 10:55 | disposition home or self-care (01) ==
LOC: ER 06:56
DX: R51.9 Headache, unspecified (principal)
CPT/HCPCS: 70450; 99283

== ENCOUNTER 2025-04-15 12:23 | Emergency (ER) | payer BC, OTHER ==
[2025-04-15] MEDS ORDERED: TRAMADOL HCL 50 MG TAB ONE (12:43)
--- NOTE | 2025-04-15 13:19 | RAD REPORT ---
EXAMINATION: XR RIGHT FOREARM CLINICAL INDICATION: . PAIN TECHNIQUE:Two view radiograph of the right forearm were obtained. COMPARISON: No prior exam. FINDINGS: Distal radius fracture is seen with intra-articular extension and mild impaction. Mild soft tissue swelling is evident. No dislocation seen.
--- NOTE | 2025-04-15 13:28 | ER ---
Nurse's Notes [facility] Name: Mariah Man Age: 59 yrs Sex: Female : 1965 Arrival Date: 04/15/2025 Time: 12:23 Bed 10 Private MD: Diagnosis: Fracture of right radius Presentation: 04/15 12:44 Chief complaint: Patient states: FELL OFF BED WHILE HANGING CURTAIN, LANDING ON TILE dd2 FLOOR INJURING RT WRIST. Coronavirus screen: At this time, the client does not indicate any symptoms associated with coronavirus-19. Ebola Screen: No symptoms or risks identified at this time. Initial Sepsis Screen: Does the patient meet any 2 criteria? No. Patient's initial sepsis screen is negative. Does the patient have a suspected source of infection? No. Patient's initial sepsis screen is negative. Risk Assessment: Do you want to hurt yourself or someone else? Patient reports no desire to harm self or others. Onset of symptoms was April 15, 2025. 12:44 Method Of Arrival: Ambulatory dd2 12:44 Acuity: KATHIE 3 dd2 12:57 Care prior to arrival: None. Mechanism of Injury: Fall. Trauma event details: Injury ll1 occurred in the [facility]. Triage Assessment: 12:47 General: Appears in no apparent distress. uncomfortable, Behavior is calm, cooperative, dd2 appropriate for age. Pain: Complains of pain in right wrist Pain currently is 8 out of 10 on a pain scale. Musculoskeletal: Circulation, motion, and sensation intact. Range of motion: limited in right wrist Swelling present in right wrist Tenderness present in right wrist Reports pain in right wrist. Trauma Activation: Not Applicable Physician: ED Physician; Name: ; Notified At: ; Arrived At: Physician: General Surgeon; Name: ; Notified At: ; Arrived At: Physician: Radiology; Name: ; Notified At: ; Arrived At: Physician: Respiratory; Name: ; Notified At: ; Arrived At: Physician: Lab; Name: ; Notified At: ; Arrived At: Historical: - Allergies: 12:47 Codeine; dd2 - PMHx: 12:47 Rheumatoid arthritis; dd2 - PSHx: 12:47 Hip surgery; removal of cyst on liver; dd2 - Immunization history:: Adult Immunizations up to date. - Infectious Disease History:: Denies. - Immunization history: Last tetanus immunization: - up to date. - Social history:: Smoking status: Patient denies any tobacco usage or history of. Screenin:56 [facility] ED Fall Risk Assessment (Adult) History of falling in the last 3 months, ll1 including since admission Yes- single mechanical fall (1 pt) Confusion or Disorientation No (0 pts) Intoxicated or Sedated No (0 pts) Impaired Gait No (0 pts) Mobility Assist Device Used No (0 pt) Altered Elimination No (0 pt) Score/Fall Risk Level 0 - 2 = Low Risk Maintained a safe environment, Hourly rounding (assess needs \T\ fall precautionary measures) done. Abuse screen: Denies threats or abuse. Nutritional screening: No deficits noted. Tuberculosis screening: No symptoms or risk factors identified. Primary Survey: 12:56 NO uncontrolled hemorrhage observed. A: The client is awake and alert. The airway is ll1 patent. Breathing/Chest: Spontaneous respiratory effort, equal unlabored respirations, breath sounds clear bilaterally, regular pattern, symmetrical chest rise and fall. Circulation: No external hemorrhage present. Regular and strong central pulse, skin warm/dry/normal color. Disability Client is alert. Exposure/Environment: There is no evidence of uncontrolled external bleeding. 14:12 Reassessment Breathing: Spontaneous respiratory effort, equal unlabored respirations, ll1 breath sounds clear bilaterally, regular pattern with symmetrical chest rise and fall. Assessment: 12:50 Reassessment: Patient and/or family updated on plan of care and expected duration. Pain ll1 level reassessed. 12:55 Neuro: No deficits noted. Cardiovascular: No deficits noted. Musculoskeletal: ll1 Circulation, motion, and sensation intact. Capillary refill < 3 seconds, in right fingers. 14:10 Reassessment: No changes from previously documented assessment. Patient and/or family ll1 updated on plan of care and expected duration. Pain level reassessed. Patient is alert, oriented x 3, equal unlabored respirations, skin warm/dry/pink. 14:10 Musculoskeletal: Circulation, motion, and sensation intact. Capillary refill < 3 ll1 seconds, in right fingers. Vital Signs: 12:44 BP 141 / 80; Pulse 77; Resp 16; Temp 98.3; Pulse Ox 97% on R/A; Weight 88.45 kg; Height dd2 5 ft. 9 in. ; Pain 8/10; 14:11 BP 147 / 92; Pulse 66; Resp 16; Pulse Ox 97% on R/A; Pain 4/10; ll1 12:44 Body Mass Index 28.80 (88.45 kg, 175.26 cm) dd2 12:44 Pain Scale: Adult dd2 14:11 Pain Scale: Adult ll1 Yogi Coma Score: 12:57 Eye Response: spontaneous(4). Motor Response: obeys commands(6). Verbal Response: ll1 oriented(5). Total: 15. Trauma Score (Adult): 12:57 Eye Response: spontaneous(1); Verbal Response: oriented(1); Motor Response: obeys ll1 commands(2); Systolic BP: > 89 mm Hg(4); Respiratory Rate: 10 to 29 per min(4); Yogi Score: 15; Trauma Score: 12 ED Course: 12:26 Patient arrived in ED. sj2 12:31 Anisha Loera FNP-C is PHCP. kb 12:31 Raji Crawford MD is Attending Physician. kb 12:47 Triage completed. dd2 12:47 Arm band placed on left wrist. dd2 12:50 Patient placed in an exam room, on a stretcher. ll1 12:55 Richard Rachel, MANOJ is Primary Nurse. ll1 12:56 Patient has correct armband on for positive identification. Bed in low position. ll1 Provided Education on: ER procedures and process. 12:57 Patient maintains SpO2 saturation greater than 95% on room air. ll1 13:15 Forearm Right XRAY In Process Unspecified. EDMS 14:10 Orthoglass splint: Sugar tong splint applied on right arm. Sling applied to right arm. ll1 14:11 No provider procedures requiring assistance completed. Patient did not have IV access ll1 during this emergency room visit. 14:12 Thermoregulation: n/a. ll1 Administered Medications: 12:55 Drug: traMADol PO 50 mg PO once {Note: pain 8/10 RASS 0.} Route: PO; ll1 14:11 Follow up: Response: No adverse reaction ll1 Medication: 12:57 VIS not applicable for this client. ll1 Intake: 14:12 PO: 100ml; Total: 100ml. ll1 Output: 14:12 Urine: 0ml; Total: 0ml. ll1 Outcome: 12:57 Patient's length of stay was not longer than 2 hours. 1 13:28 Discharge ordered by . lucio 14:12 Discharged to home ambulatory, 1 14:12 Condition: stable 14:12 Discharge instructions given to patient, Instructed on discharge instructions, follow up and referral plans. medication usage, Demonstrated understanding of instructions, follow-up care, medications, splint care, Prescriptions given X 1, 14:13 Patient left the ED. 1 Signatures: Dispatcher [employer] EDAnisha Trujillo FNP-C FNP-Ckb Lewis, Lynsay, RN RN ll1 PROSPER CARNES RN RN dd2 Yimi Chavez2
--- NOTE | 2025-04-15 13:28 | EDPHYS ---
Physician Documentation [facility] Name: Mariah Man Age: 59 yrs Sex: Female : 1965 Arrival Date: 04/15/2025 Time: 12:23 Bed 10 Private MD: ED Physician Raji Crawford HPI: 04/15 12:42 This 59 yrs old Female presents to ER via Unassigned with complaints of Fall Injury - kb WRIST. 12:42 Patient is a 59-year-old female presents for right wrist pain that occurred just prior kb to arrival. States she was standing on the edge of her bed trying to put up curtains and fell landing on outstretched hand. Denies any other injury or trauma.. Historical: - Allergies: 12:47 Codeine; dd2 - PMHx: 12:47 Rheumatoid arthritis; dd2 - PSHx: 12:47 Hip surgery; removal of cyst on liver; dd2 - Immunization history:: Adult Immunizations up to date. - Infectious Disease History:: Denies. - Immunization history: Last tetanus immunization: - up to date. - Social history:: Smoking status: Patient denies any tobacco usage or history of. ROS: 12:42 Constitutional: As per HPI kb Exam: 12:42 Constitutional: This is a well developed, well nourished patient who is awake, alert, kb and in no acute distress. Head/Face: Normocephalic, atraumatic. ENT: Moist Mucous membranes Respiratory: Respirations even and unlabored. No increased work of breathing. Talking in full sentences Skin: Warm, dry with normal turgor. Normal color. Neuro: Awake and alert, GCS 15, oriented to person, place, time, and situation. 12:42 Musculoskeletal/extremity: Extremities: grossly normal except: noted in the right wrist: decreased ROM, deformity, pain, swelling, tenderness, ROM: limited active range of motion, limited active range of motion due to pain, Circulation is intact in all extremities. Sensation intact. Vital Signs: 12:44 BP 141 / 80; Pulse 77; Resp 16; Temp 98.3; Pulse Ox 97% on R/A; Weight 88.45 kg; Height dd2 5 ft. 9 in. ; Pain 8/10; 14:11 BP 147 / 92; Pulse 66; Resp 16; Pulse Ox 97% on R/A; Pain 4/10; ll1 12:44 Body Mass Index 28.80 (88.45 kg, 175.26 cm) dd2 12:44 Pain Scale: Adult dd2 14:11 Pain Scale: Adult ll1 Yogi Coma Score: 12:57 Eye Response: spontaneous(4). Motor Response: obeys commands(6). Verbal Response: ll1 oriented(5). Total: 15. Trauma Score (Adult): 12:57 Eye Response: spontaneous(1); Verbal Response: oriented(1); Motor Response: obeys ll1 commands(2); Systolic BP: > 89 mm Hg(4); Respiratory Rate: 10 to 29 per min(4); Yogi Score: 15; Trauma Score: 12 Procedures: 14:05 Splinting: Splint applied to right arm using Orthoglass splint, applied by tech. kb Examined by me, post splint application: neurovascular intact, 2+ distal pulses palpable, brisk capillary refill noted, Patient tolerated well. MDM: 12:31 Medical Screening Exam initiated kb 13:27 Differential diagnosis: contusion, fracture, sprain. Data reviewed: vital signs, nurses kb notes. Independent interpretation of the following test(s) in the Emergency Department X-Ray: My interpretation is right radius fracture. Counseling: I had a detailed discussion with the patient and/or guardian regarding the historical points, exam findings, and any diagnostic results supporting the discharge/admit diagnosis, radiology results, the need for outpatient follow up, a orthopedic surgeon, to return to the emergency department if symptoms worsen or persist or if there are any questions or concerns that arise at home. 13:29 External Records Reviewed: [facility] aware reviewed. kb 04/15 12:40 Order name: Forearm Right XRAY; Complete Time: 13:22 dd2 04/15 12:41 Order name: Ice pack; Complete Time: 12:50 dd2 04/15 13:24 Order name: Sugar Tong Forearm Splint; Complete Time: 14:10 kb 04/15 13:24 Order name: Sling; Complete Time: 14:10 kb Administered Medications: 12:55 Drug: traMADol PO 50 mg PO once {Note: pain 8/10 RASS 0.} Route: PO; ll1 14:11 Follow up: Response: No adverse reaction ll1 Disposition: 16:42 Co-signature as Attending Physician, Raji Crawford MD I reviewed the patient's care rn provided by the Advanced Practice Provider and agree with the diagnosis and treatment plan. Disposition Summary: 04/15/25 13:28 Discharge Ordered Notes: Location: Home kb Condition: Stable kb Diagnosis - Fracture of right radius kb Followup: kb - With: Emergency Department - When: As needed - Reason: Worsening of condition Followup: kb - With: Private Physician - When: 2 - 3 days - Reason: Recheck today's complaints, Continuance of care, Re-evaluation by your physician Discharge Instructions: - Discharge Summary Sheet kb - Radial Fracture kb Forms: - Medication Reconciliation Form kb - Antibiotic Education kb - Prescription Opioid Use kb - Patient Portal Instructions kb - Leadership Thank You Letter kb Prescriptions: - Tramadol 50 mg Oral Tablet - take 1 tablet ORAL route every 8 hours as needed; 12 tablet; Refills: 0, kb Product Selection Permitted Signatures: Dispatcher [employer] EDMS Anisha Loera, RN WOMEN SERVICES-C RN WOMEN SERVICES-Ckb Raji Crawford MD MD rn Lewis, Lynsay RN RN ll1 PROSPER CARNES RN RN dd2
[2025-04-15 20:10] VITALS: TEMP 98.3; O2SAT 97
[2025-04-15 20:12] VITALS: BP 147/92
== END 2025-04-15 14:13 | disposition home or self-care (01) ==
LOC: ER 12:23
PROC: 2W3CX1Z Immobilization of Right Lower Arm using Splint (ICD-10-PCS; principal; 2025-04-15)
DX: S52.91XA Unspecified fracture of right forearm, initial encounter for closed fracture (principal); W18.30XA Fall on same level, unspecified, initial encounter
CPT/HCPCS: 99284